=== PATIENT | female | born 1945 | race Caucasian/White ===

== ENCOUNTER 2019-02-25 07:08 | Day surgery (SDC) | payer MEDICARE, BC ==
[2019-02-22 12:01] LABS: BASOPHILS # (AUTO) 0.03 x10^3/uL (0-0.1); BASOPHILS % (AUTO) 0 % (0-1); EOSINOPHILS # (AUTO) 0.16 x10^3/uL (0-0.4); EOSINOPHILS % (AUTO) 3 % (1-7); LYMPHOCYTES # (AUTO) 1.39 x10^3/uL (1-3.4); LYMPHOCYTES % (AUTO) 21 % (22-44); MD NO; MEAN CORPUSCULAR VOLUME 90.8 fL (80-100); MEAN PLATELET VOLUME 9.3 fL (7.4-10.4); MONOCYTES # (AUTO) 0.42 x10^3/uL (0.2-0.8); MONOCYTES % (AUTO) 6 % (2-9); NEUTROPHILS # (AUTO) 4.66 x10^3/uL (1.8-6.8); NEUTROPHILS % (AUTO) 70 % (42-75); PLATELET COUNT 284 x10^3/uL (130-400); RED CELL DISTRIBUTION WIDTH 15.3 % (9.6-15.2)
[2019-02-22 12:12] LABS: ANION GAP 6 mmol/L (5-15); CALCIUM 9.3 mg/dL (8.5-10.1); CHLORIDE 110 mmol/L (98-107); CREATININE 0.97 mg/dL (0.55-1.02)
[~2019-02-25] VITALS: Ht 172.7 cm; Wt 81.9 kg
[~2019-02-25 07:08] MED LIST: ACET325T26 PO; AMLO10TA8 PO; AREDS 2 PO; ATOR10TA PO; BIOT1TAB2 PO; EMPA10TA PO; FOLI-17 PO; METF10007 PO; MONT10TA6 PO; OMEP20TA62 PO; PARO20TA4 PO; RAMI10CA59 PO; RIVA20TA PO
[2019-02-25 07:40] VITALS: BP 149/77
[2019-02-25] MEDS ORDERED: SODIUM CHLORIDE 0.9% 1,000 ML IV SCH (08:00)
[2019-02-25] MEDS ORDERED: MIDAZOLAM 1 MG/ML, 5ML ONE (08:36)
[2019-02-25] MEDS ORDERED: FENTANYL PF 100 MCG/2ML ONE (08:36)
[2019-02-25] MEDS ORDERED: NITROGLYCERIN 5 MG/ML, 10ML ONE (08:37)
[2019-02-25] MEDS ORDERED: NALOXONE 1 MG/ML, 2ML ONE (08:37)
[2019-02-25] MEDS ORDERED: PROTAMINE SULFATE 10 MG/ML, 25ML ONE (08:37)
[2019-02-25] MEDS ORDERED: FLUMAZENIL 0.1 MG/1 ML, 5ML ONE (08:37)
[2019-02-25] MEDS ORDERED: HEPARIN 1,000 UNITS/ML, 10ML ONE (08:37)
[2019-02-25] MEDS ORDERED: LIDOCAINE 1%, 10ML ONE (09:19)
[2019-02-25] MEDS ORDERED: VISIPAQUE 270 MG/ML, 150ML BOTTLE ONE (13:00)
== END 2019-02-25 13:25 | disposition home or self-care (01) ==
LOC: SDC 07:08
PROVIDERS: ATTEND Surgery
DX: I82.402 Acute embolism and thrombosis of unspecified deep veins of left lower extremity (principal); F41.9 Anxiety disorder, unspecified; F32.9 Major depressive disorder, single episode, unspecified; E11.9 Type 2 diabetes mellitus without complications; K21.9 Gastro-esophageal reflux disease without esophagitis; E78.00 Pure hypercholesterolemia, unspecified; I10 Essential (primary) hypertension; Z95.0 Presence of cardiac pacemaker; Z87.891 Personal history of nicotine dependence; Z90.49 Acquired absence of other specified parts of digestive tract; Z90.710 Acquired absence of both cervix and uterus; Z98.890 Other specified postprocedural states; Z79.84 Long term (current) use of oral hypoglycemic drugs; Z88.1 Allergy status to other antibiotic agents; Z88.5 Allergy status to narcotic agent; Z72.89 Other problems related to lifestyle
CPT/HCPCS: 36415; 37193; 37238; 37252; 80048; 85025; 99156; 99157; C1725; C1753; C1769; C1773; C1876; C1894; J1644; J2250; J3010; Q9966; J2720; J2310

== ENCOUNTER → 2019-08-09 | Outpatient (CLI) | payer MEDICARE, BC ==
[2019-08-09 09:55] LABS: INTERNATIONAL NORMALIZED RATIO 0.89 (0.93-1.1); PROTHROMBIN TIME 9.4 Seconds (9.6-11.5)
[2019-08-09 09:59] LABS: ANION GAP 13 mmol/L (5-15); CALCIUM 9.1 mg/dL (8.5-10.1); CHLORIDE 104 mmol/L (98-107); CREATININE 1.13 mg/dL (0.55-1.02)
[2019-08-09 10:21] LABS: MICROSCOPIC INDICATED
[2019-08-09 10:26] LABS: BASOPHILS # (AUTO) 0.02 x10^3/uL (0-0.1); BASOPHILS % (AUTO) 0 % (0-1); EOSINOPHILS # (AUTO) 0.17 x10^3/uL (0-0.4); EOSINOPHILS % (AUTO) 3 % (1-7); LYMPHOCYTES % (AUTO) 24 % (22-44); MD NO; MEAN CORPUSCULAR HEMOGLOBIN 27.9 pg (27.0-34.8); MEAN CORPUSCULAR HGB CONC 31.9 g/dL (32.4-35.8); MEAN CORPUSCULAR VOLUME 87.5 fL (80-100); MEAN PLATELET VOLUME 9.6 fL (7.4-10.4); MONOCYTES # (AUTO) 0.34 x10^3/uL (0.2-0.8); MONOCYTES % (AUTO) 6 % (2-9); NEUTROPHILS # (AUTO) 3.57 x10^3/uL (1.8-6.8); NEUTROPHILS % (AUTO) 66 % (42-75); PLATELET COUNT 300 x10^3/uL (130-400); RED BLOOD COUNT 4.66 x10^6/uL (3.82-5.3); RED CELL DISTRIBUTION WIDTH 16.4 % (9.6-15.2)
== END | disposition home or self-care (01) ==
LOC: RAD 09:14
PROVIDERS: ATTEND Orthopaedic Surgery
DX: Z01.818 Encounter for other preprocedural examination (principal); M48.061 Spinal stenosis, lumbar region without neurogenic claudication
CPT/HCPCS: 36415; 71046; 80048; 81001; 82306; 85025; 85610; 93005